=== PATIENT | male | born 1995 | race Caucasian/White ===

== ENCOUNTER 2018-02-14 13:07 | Emergency (ER) | payer OTHER ==
[~2018-02-14] VITALS: Ht 170.2 cm; Wt 68.9 kg
[2018-02-14 13:35] VITALS: BP 154/87; Ht 170.2 cm; Wt 68.9 kg
== END 2018-02-14 14:05 | disposition left against medical advice (07) ==
LOC: ED 13:07
DX: Z53.21 Procedure and treatment not carried out due to patient leaving prior to being seen by health care provider (principal)

== ENCOUNTER 2019-07-10 23:15 | Emergency (ER) | payer OTHER ==
[~2019-07-10] VITALS: Ht 170.2 cm; Wt 66.7 kg
[2019-07-10 23:22] VITALS: Ht 170.2 cm; Wt 66.7 kg
[2019-07-11 00:30] VITALS: BP 154/92
== END 2019-07-11 00:30 | disposition other institution (70) ==
LOC: ED 23:15
DX: S00.83XA Contusion of other part of head, initial encounter (principal); S00.31XA Abrasion of nose, initial encounter; W22.8XXA Striking against or struck by other objects, initial encounter; Y93.89 Activity, other specified; Y92.89 Other specified places as the place of occurrence of the external cause; Y99.8 Other external cause status
CPT/HCPCS: 90715

== ENCOUNTER 2019-07-10 23:15 | Emergency (ER) | payer OTHER | END 2019-07-11 00:30 | disposition other institution (70) | LOC: ED 23:15 | DX: Z02.89 Encounter for other administrative examinations (principal) ==